=== PATIENT | male | born 1995 | race Asian ===

== ENCOUNTER 2018-08-04 09:45 | Inpatient (IN) | payer BC, OTHER ==
[2018-08-04] MEDS ORDERED: LACTATED RINGERS SOLUTION 1,000 ML IV STA (11:14)
[2018-08-04] MEDS ORDERED: METOCLOPRAMIDE HCL INJECTION 10 MG/2 ML VIAL IVPUSH ONE (11:14)
[2018-08-04] MEDS ORDERED: FAMOTIDINE 20 MG/50 ML IVPB 20 MG/50 ML MG IVPB ONE ×2 (11:14→12:01)
--- NOTE | 2018-08-04 11:55 | PDOC ---
History of Present Illness - General Chief Complaint: Back Pain Stated Complaint: LOWER BACK PAIN Time Seen by Provider: 08/04/18 11:03 History Source: Patient Exam Limitations: No Limitations - History of Present Illness Initial Comments: 08/04/18 11:52 HPI 23 YOM with no medical history presenting with epigastric AP and back pain x 2 weeks, worsening today with nausea and bloody, "black" emesis x 3 episodes mixed with food. Described AP and back pain as pressure like along the sides and under his rib cage. associated with "gas" discomfort and dry heaves initially. No alleviating or exacerbating factors. No food precipitants or suspicious food intake. No nsaid or otc supplement use. No binge drinking. Admits to occasional cannibis and smoking. No prior history of similar sx. +lightheadedness and dizziness, mild chest discomfort and palpitations with the abdominal sx. He does admit to heavy lifting with his occupation, carrying heavy boxes and loads, but denies trauma or falls. Denies fever, chills, chest pain, SOB, palpitation,, weakness,, D, abdominal pain, diarrhea or constipation, bloody stools, bladder and bowel problems, hematuria, rash, leg swelling, No sick contacts or travel. Allergies: NKA Past Medical History: none Social history: Lives with family. +smoking and cannibis use. No alcohol use. Surgical history: none ROS Constitutional: no fevers or chills. No weakness or anorexia, weight loss. + sweats and flushing. HEENT: +lightheadedness/dizziness. no headache. No congestion. No visual/ hearing disturbances. CVS: no cp or syncope. +palpitations. Resp: no sob. No cough. Gastrointestinal: +nausea, vomiting and abdominal pain. No bloody stools and no constipation/diarrhea. No flank pain. Genitourinary: no urinary sx, hematuria. No dysuria, urgency or frequency. MUSCULOSKELETAL: No joint pain and swelling. No neck pain. +back pain. SKIN: no redness or skin changes, no discharge, no rash. No wounds. Hematologic: no easy bruising/bleeding. NEUROLOGIC: No headache,LOC or altered mental status. No weakness, numbness or tingling. Allergic/Immunologic: no allergies All other systems reviewed and negative, or as documented in HPI. PE: General: Well appearing, awake and alert, NAD. HEENT: NCAT, PERRL, EOMI, clear conjunctiva, anicteric, moist mucus membranes, clear oropharynx, no oral lesions.. Neck: neck supple, FROM Resp: CTAB, normal and even respirations, no respiratory distress CVS: RRR, no murmurs, 2+ peripheral pulses throughout, no peripheral edema Abdomen: soft, +RUQ and epigastric abdominal tenderness, nondistended. No CVAT or flank tenderness. No rebound or guarding. Back: +paravertebral thoracic back TTP, normal inspection and ROM with extension /flexion of spine. MSK: no edema, HUGHES x4, ROM intact. No clubbing or cyanosis. normal bulk and tone. Extremities: no calf tenderness, no edema. Neuro: alert, Skin: warm and well perfused, cap refill <2 sec, normal color, moist to touch. 08/04/18 11:56 Past History - Past Medical History Allergies/Adverse Reactions: Allergies Allergy/AdvReac Type Severity Reaction Status Date / Time No Known Allergies Allergy Verified 08/04/18 09:53 COPD: No Other medical history: DENIES - Immunization History Immunization Up to Date: Yes - Suicide/Smoking/Psychosocial Hx Smoking History: Current every day smoker Have you smoked in the past 12 months: Yes Number of Cigarettes Smoked Daily: 10 Information on smoking cessation initiated: No Hx Alcohol Use: No Drug/Substance Use Hx: Yes (MARIJUANA) *Physical Exam - Vital Signs Last Vital Signs Temp Pulse Resp BP Pulse Ox 98.4 F 72 17 132/78 100 08/04/18 09:47 08/04/18 09:47 08/04/18 09:47 08/04/18 09:47 08/04/18 09:47 Moderate Sedation - Procedure Monitoring Vital Signs: Procedure Monitoring Vital Signs Temperature 98.4 F 08/04/18 09:47 Pulse Rate 72 08/04/18 09:47 Respiratory Rate 17 08/04/18 09:47 Blood Pressure 132/78 08/04/18 09:47 O2 Sat by Pulse Oximetry (%) 100 08/04/18 09:47 Procedures - Bedside Ultrasound Bedside Ultrasound: Gallbladder Remarks: 08/04/18 13:39 POCUS biliary exam: Indication: abdominal pain Views: gallbladder long and short axis, CBD Findings: large gallstone noted at the GB neck, GB wall thickening to 12mm, no pericholecystic fluid, normal CBD <3mm for age. +songuy wood Impression: cholelithiasis with acute cholecystitis. Heart Score/ECG Review #1 ECG reviewed & interpreted by me at: 11:40 General ECG Interpretation: Sinus Rhythm Compared to previous ECG there are: Previous ECG unavail 08/04/18 14:08 EKG normal sinus rhythm at 66 bpm, no interval abnormalities, narrow QRS, ST and T wave segments and morphology normal. ED Treatment Course - LABORATORY CBC & Chemistry Diagram: 08/04/18 12:25 08/04/18 12:25 - RADIOLOGY Radiology Studies Ordered: Category Date Time Status ABDOMEN US -LIMITED [US] Stat Ultrasound 08/04/18 11:15 Ordered Medical Decision Making - Medical Decision Making 08/04/18 11:53 See HPI for details DDx abdominal pain: Renal colic, biliary colic, metabolic/electrolyte derangements. GERD, PUD, esophageal spasm, gastritis, pancreatitis, hepatitis, colitis, gastroenteritis, cholecystitis, choledocholithiasis, UTI, pyelonephritis, hernia, muscle strain. Vital signs reviewed, wnl. no fever, normotensive. Prior notes reviewed, including admissions, discharges and consultations. laboratory results and imaging reviewed, basic labs and lytes notable for normal LFTs/lipase; +leukocytosis of 17K c/w infection/inflammation EKG normal sinus rhythm at 66 bpm, no interval abnormalities, narrow QRS, ST and T wave segments and morphology normal. ED course - IVF and pepcid/reglan. analgesia with tylenol/morphine. - bedside biliary pocus with cholelithiasis with acute cholecystitis (sono walter, GB wall thickening 12mm, large stone at the GB neck), normal CBD. - IV abx, ceftriaxone and flagyl for coverage, appropriate for acute alverto. - surg cs. - official RUQ sono pending - confirms findings. dispo: admit to med surg for acute cholecystitis, npo, bowel rest, pain control and abx. Surg cs with Dr Carrillo associate application developer. s/o to Dr Cross, admitting to hospitalist service at request of surgeon. 08/04/18 14:05 08/04/18 16:55 *DC/Admit/Observation/Transfer Diagnosis at time of Disposition: Acute cholecystitis - Discharge Dispostion Condition at time of disposition: Guarded Decision to Admit order: Yes Decision to Admit order Date/Time: 08/04/18 13:48 Decision to Admit Order Category Date Time Status Decision to Admit to Hospital Routine Admission 08/04/18 13:47 Ordered - Referrals - Patient Instructions - Post Discharge Activity
[2018-08-04] MEDS ORDERED: METOCLOPRAMIDE HCL INJECTION 10 MG/2 ML VIAL ONE (12:01)
[2018-08-04 12:39] LABS: BASO % 0.6 % (0-2.0); EOS % 0.6 % (0-4.5); HEMATOCRIT 47.3 % (35.4-49); HEMOGLOBIN 16.4 GM/dL (11.7-16.9); LYMPH % 13.2 % (8-40); MCH 29.4 pg (25.7-33.7); MCHC 34.7 g/dl (32.0-35.9); MEAN CELL VOLUME 84.8 fl (80-96); MEAN PLT VOLUME 11.2 fl (7.5-11.1); NEUT % 81.6 % (42.8-82.8); PLATELET COUNT 209 K/MM3 (134-434); RBC 5.58 M/mm3 (4.00-5.60); RDW 13.8 % (11.9-15.9)
[2018-08-04] MEDS ORDERED: ACETAMINOPHEN 1000 MG/100 ML VIAL (NON FORMULARY) IVPB ONE (12:45)
[2018-08-04] MEDS ORDERED: ACETAMINOPHEN INJECTION 100 ML IVPB ONE (13:05)
[2018-08-04 13:12] LABS: ALBUMIN 4.5 g/dl (3.4-5.0); ALK PHOS 74 U/L (45-117); ANION GAP 7 MMOL/L (8-16); BLOOD UREA NITROGEN 9 mg/dL (7-18); CALCIUM 9.9 mg/dL (8.5-10.1); CHLORIDE 108 mmol/L (98-107); CO2 24 mmol/L (21-32); CREATININE 0.9 mg/dL (0.55-1.3); GLUCOSE,RANDOM 104 mg/dL (74-106); LIPASE 90 U/L (73-393); POTASSIUM 3.8 mmol/L (3.5-5.1); SGOT/AST 25 U/L (15-37); SGPT/ALT 24 U/L (13-61); SODIUM 139 mmol/L (136-145); TOT PROT 7.9 g/dl (6.4-8.2)
[2018-08-04] MEDS ORDERED: morphine CARPU-JECT 4 MG/1 ML DISP.SYRIN IVPUSH ONE (13:26)
[2018-08-04] MEDS ORDERED: CEFTRIAXONE 1,000 MG in DEXTROSE 5%-WATER - 50 ML IVPB ONE (13:29)
[2018-08-04] MEDS ORDERED: morphine SULFATE 4 MG/ML VIAL ONE (13:48)
[2018-08-04] MEDS ORDERED: CEFTRIAXONE 1 GM/50 ML BAG ONE ×2 (13:48→14:52)
[2018-08-04] MEDS ORDERED: LACTATED RINGERS SOLUTION 1,000 ML/1,000 ML INFUS.BAG IV SCH (14:45)
--- NOTE | 2018-08-04 15:05 | HP ---
CHIEF COMPLAINT: abdominal pain, nausea PCP: HISTORY OF PRESENT ILLNESS: 23 y/o M with no significant PMH who presents to the ED c/o abdominal pain over the past day. As per pt, last night, he developed severe epigastric pain located below his rib cage. Pain started 30 min after dinner which consisted of rice and meat. Pain has been intermittent, "sharp and stabbing like a sword" with episodes lasting for a few minutes each before subsiding. During this time , pt endorses general nausea and induced vomiting to "get it out" three times. States it was dark in color, but is not sure whether it had any blood in it. Was a/w chills, sweating and SOB. Denies BOJORQUEZ, chest pain or pressure, or changes in urinary or bowel function. Of note, pt has had chronic back pain over the last few months in his paraspinal region. Attributes to heavy lifting for his job. ER course was notable for: (1) ofirmev (2) rocephin, flagyl x 1 (3) pepcid (4) metoclopramide (5) IV LR Recent Travel: denies PAST MEDICAL HISTORY: none PAST SURGICAL HISTORY: none Social History: works in construction, particularly on raquel and carpets Smoking: active smoker. 1/2 ppd since age 16. does not want to quit. counseled on importance Alcohol: socially Drugs: marijuana 1x /day Family History: mother - asthma, grandparents- gallstones Allergies No Known Allergies Allergy (Verified 08/04/18 09:53) HOME MEDICATIONS: NK confirmed with patient and mother REVIEW OF SYSTEMS CONSTITUTIONAL: Absent: fever, chills, diaphoresis, generalized weakness, malaise, loss of appetite, weight change HEENT: Absent: rhinorrhea, nasal congestion, throat pain, throat swelling, difficulty swallowing, mouth swelling, ear pain, eye pain, visual changes CARDIOVASCULAR: Absent: chest pain, syncope, palpitations, irregular heart rate, lightheadedness , peripheral edema RESPIRATORY: Absent: cough, shortness of breath, dyspnea with exertion, orthopnea, wheezing, stridor, hemoptysis GASTROINTESTINAL: +abdominal pain, nausea, vomiting Absent: abdominal distension, diarrhea, constipation, melena, hematochezia GENITOURINARY: Absent: dysuria, frequency, urgency, hesitancy, hematuria, flank pain, genital pain MUSCULOSKELETAL: Absent: myalgia, arthralgia, joint swelling, back pain, neck pain SKIN: Absent: rash, itching, pallor HEMATOLOGIC/IMMUNOLOGIC: Absent: easy bleeding, easy bruising, lymphadenopathy, frequent infections ENDOCRINE: Absent: unexplained weight gain, unexplained weight loss, heat intolerance, cold intolerance NEUROLOGIC: Absent: headache, focal weakness or paresthesias, dizziness, unsteady gait, seizure, mental status changes, bladder or bowel incontinence PSYCHIATRIC: Absent: anxiety, depression, suicidal or homicidal ideation, hallucinations. PHYSICAL EXAMINATION Vital Signs - 24 hr 08/04/18 09:47 Temperature 98.4 F Pulse Rate 72 Respiratory 17 Rate Blood Pressure 132/78 O2 Sat by Pulse 100 Oximetry (%) GENERAL: Pleasant. Awake, alert, and fully oriented, in no acute distress. HEAD: Normal with no signs of trauma. EYES: Pupils equal, round and reactive to light, extraocular movements intact, sclera anicteric, conjunctiva clear. No lid lag. EARS, NOSE, THROAT: Ears normal, nares patent, oropharynx clear without exudates. Moist mucous membranes. NECK: Normal range of motion, supple without lymphadenopathy LUNGS: Breath sounds equal, clear to auscultation bilaterally. No wheezes, and no crackles. No accessory muscle use. HEART: Regular rate and rhythm, normal S1 and S2 without murmur, rub or gallop. ABDOMEN: Soft, +mild epigastric, RUQ tenderness. not distended, normoactive bowel sounds, no guarding, no rebound LOWER EXTREMITIES: 2+ pt pulses, warm, well-perfused. No calf tenderness. No peripheral edema. NEUROLOGICAL: Cranial nerves II-XII intact. 5/5 motor strength UE, LE. sensation intact PSYCHIATRIC: Cooperative. SKIN: Warm, dry, normal turgor Laboratory Results - last 24 hr 08/04/18 08/04/18 12:25 12:25 WBC 17.0 H RBC 5.58 Hgb 16.4 Hct 47.3 MCV 84.8 MCH 29.4 MCHC 34.7 RDW 13.8 Plt Count 209 MPV 11.2 H Absolute Neuts (auto) 13.9 H Neutrophils % 81.6 Lymphocytes % 13.2 Monocytes % 4.0 Eosinophils % 0.6 Basophils % 0.6 Nucleated RBC % 0 Sodium 139 Potassium 3.8 Chloride 108 H Carbon Dioxide 24 Anion Gap 7 L BUN 9 Creatinine 0.9 Creat Clearance w eGFR > 60 Random Glucose 104 Calcium 9.9 Total Bilirubin 1.0 AST 25 ALT 24 Alkaline Phosphatase 74 Total Protein 7.9 Albumin 4.5 Lipase 90 POCUS biliary exam done by ED, as per ED attending: Indication: abdominal pain Views: gallbladder long and short axis, CBD Findings: large gallstone noted at the GB neck, GB wall thickening to 12mm, no pericholecystic fluid, normal CBD <3mm for age. +sono israel Impression: cholelithiasis with acute cholecystitis. Abd sono: acute calculous alverto. immobile calculi, 1.4cm diam, mild overdistended GB. without pericholecystic fluid. EKG: NSR, rate 60's, qtc 442ms. no acute st-t wave changes ASSESSMENT/PLAN: 23 y/o M with no significant PMH who presents to the ED c/o abdominal pain over the past day. #acute calculous cholecystitis -as per ED bedside sono, with gallstone at GB neck, wall thickening, no pericholecystic fluid, +sono walter's -official abd sono: as above -d/w sx, will take to OR tomorrow. NPO after MN, coags, T+S -will c/w IV abx: rocephin 1g IVPB qd, flagyl 500mg IVPB q8h -IV LR 100 cc/hr -pain control with morphine 2mg q6h -without nausea currently. however can give zofran if needed -surgery on board: Dr. Carrillo #F/E/N IV LR 100 cc/hr continue to follow lytes NPO after MN #PPX DVT: hep 5k TID. hold after MN #Dispo admit to med-surg Visit type - Emergency Visit Emergency Visit: Yes ED Registration Date: 08/04/18 Care time: The patient presented to the Emergency Department on the above date and was hospitalized for further evaluation of their emergent condition. - New Patient This patient is new to me today: Yes Date on this admission: 08/04/18 - Critical Care Critical Care patient: No
--- NOTE | 2018-08-04 15:34 | EKG ---
Test Reason : Blood Pressure : / mmHG Vent. Rate : 066 BPM Atrial Rate : 066 BPM P-R Int : 134 ms QRS Dur : 094 ms QT Int : 422 ms P-R-T Axes : 065 063 060 degrees QTc Int : 442 ms NORMAL SINUS RHYTHM NORMAL ECG NO PREVIOUS ECGS AVAILABLE Confirmed by DONNA OKEEFE, NATALY ([id number]) on 08/04/2018 3:34:36 PM Referred By: Confirmed By:NATALY THOMPSON MD
[2018-08-04] MEDS ORDERED: MORPHINE SULFATE 2 MG/ML VIAL IVPUSH PRN (16:00)
--- NOTE | 2018-08-04 16:23 | CONSULT ---
Consult Consult Specialty:: Surgery Reason for Consultation:: Abdominal pain , calculus of gallbladder with acute cholecystitis - History of Present Illness Chief Complaint: Abdominal pain in right upper quadrant abdomianl apin , radiating to the back. - History Source History Provided By: Patient Limitations to Obtaining History: No Limitations - Alcohol/Substance Use Hx Alcohol Use: No History of Substance Use: reports: Marijuana - Smoking History Smoking history: Current every day smoker Have you smoked in the past 12 months: Yes Aproximately how many cigarettes per day: 10 Home Medications - Allergies Allergies/Adverse Reactions: Allergies Allergy/AdvReac Type Severity Reaction Status Date / Time No Known Allergies Allergy Verified 08/04/18 09:53 Physical Exam Vital Signs: Vital Signs Temperature 98.4 F 08/04/18 09:47 Pulse Rate 72 08/04/18 09:47 Respiratory Rate 17 08/04/18 09:47 Blood Pressure 132/78 08/04/18 09:47 O2 Sat by Pulse Oximetry (%) 100 08/04/18 09:47 Gastrointestinal: Yes: WNL, Normal Bowel Sounds Labs: CBC, BMP 08/04/18 12:25 08/04/18 12:25 Imaging - Results Ultrasound: Report Reviewed (Claculus of gallbladder with acute cholecystitis.) , Image Reviewed Problem List - Problems (1) Calculus of gallbladder Code(s): K80.20 - CALCULUS OF GALLBLADDER W/O CHOLECYSTITIS W/O OBSTRUCTION Qualifiers: Cholecystitis presence: with cholecystitis (2) Acute cholecystitis Code(s): K81.0 - ACUTE CHOLECYSTITIS Assessment/Plan Acute calculus cholecystitis. Plan : Antibiotics. Laparoscopic cholecystectomy , delbert salas, Patient and his mother explained of the findings, the plan to do cholecystectomy , laparoscopic possible open. IV antibiotics. Risks, benefits and complications explained, including conversion to open, bleeding , infection , bile leak , bile duct injury etc. The adverse effects of smoking explained. All questions answered. He is scheduled for surgery tomorrow.
[2018-08-04 17:27] LABS: INR 1.1 (0.83-1.09)
[2018-08-04 17:29] LABS: ACTIVATED PTT 32.9 SECONDS (25.2-36.5)
[2018-08-04 17:43] VITALS: BMI 26.8
[2018-08-04] MEDS ORDERED: HEPARIN NA (PORCINE) 5,000 UNITS/ML 1ML VIAL SQ SCH ×2 (18:00→22:00)
--- NOTE | 2018-08-04 19:47 | PN ---
Teaching Attending Note Name of Resident: Kathrin Cross ATTENDING PHYSICIAN STATEMENT I saw and evaluated the patient. I reviewed the resident's note and discussed the case with the resident. I agree with the resident's findings and plan as documented. SUBJECTIVE: Complains of back pain and RUQ tenderness with dark vomitus with red clots. No chest pain/palps/SOB/diarhhea. No melena OBJECTIVE: Afebrile, Hemodynamically Stable Last Vital Signs Temp Pulse Resp BP Pulse Ox 98.1 F 67 18 156/76 100 08/04/18 17:35 08/04/18 17:35 08/04/18 17:35 08/04/18 17:35 08/04/18 18:11 HEENT- Atraumatic, Normocephalic Heart - S1, S2, RRR Lungs - clear to auscultation Abdomen- RUQ tenderness, soft, no guarding. Bowel Sounds normal. Extremities - no edema, no calf tenderness. Laboratory Results - last 24 hr 08/04/18 08/04/18 08/04/18 12:25 12:25 16:17 WBC 17.0 H RBC 5.58 Hgb 16.4 Hct 47.3 MCV 84.8 MCH 29.4 MCHC 34.7 RDW 13.8 Plt Count 209 MPV 11.2 H Absolute Neuts (auto) 13.9 H Neutrophils % 81.6 Lymphocytes % 13.2 Monocytes % 4.0 Eosinophils % 0.6 Basophils % 0.6 Nucleated RBC % 0 PT with INR 13.00 INR 1.10 H PTT (Actin FS) 32.9 Sodium 139 Potassium 3.8 Chloride 108 H Carbon Dioxide 24 Anion Gap 7 L BUN 9 Creatinine 0.9 Creat Clearance w eGFR > 60 Random Glucose 104 Calcium 9.9 Total Bilirubin 1.0 AST 25 ALT 24 Alkaline Phosphatase 74 Total Protein 7.9 Albumin 4.5 Lipase 90 Blood Type Antibody Screen 08/04/18 16:17 WBC RBC Hgb Hct MCV MCH MCHC RDW Plt Count MPV Absolute Neuts (auto) Neutrophils % Lymphocytes % Monocytes % Eosinophils % Basophils % Nucleated RBC % PT with INR INR PTT (Actin FS) Sodium Potassium Chloride Carbon Dioxide Anion Gap BUN Creatinine Creat Clearance w eGFR Random Glucose Calcium Total Bilirubin AST ALT Alkaline Phosphatase Total Protein Albumin Lipase Blood Type A POSITIVE Antibody Screen Negative Current Medications Generic Name Dose Route Start Last Admin Trade Name Freq PRN Reason Stop Dose Admin Ceftriaxone Sodium 1 gm/ 50 mls @ 100 mls/hr 08/05/18 13:00 Dextrose IVPB DAILY DEUCE Metronidazole 500 mg in 100 mls @ 100 mls/hr 08/04/18 21:30 Flagyl 500mg Premixed Ivpb - IVPB Q8H-IV DEUCE Lactated Ringer's 1,000 ml in 1,000 mls @ 100 mls/hr 08/04/18 14:45 08/04/18 14:45 Lactated Ringers Solution IV 100 mls/hr ASDIR DEUCE Administration Morphine Sulfate 2 mg 08/04/18 16:00 08/04/18 17:50 Morphine Sulfate IVPUSH 2 mg Q6H PRN Administration PAIN LEVEL 7 - 10 Pantoprazole Sodium 40 mg 08/04/18 22:00 Protonix Iv IVPUSH BID DEUCE ASSESSMENT AND PLAN: 23 year old malew ith no significant PMH presents with back pain and dark vomitus with "red clots", found to have RUQ tenderness and acute calculous cholecystitis on US imaging. US Abdomen - acute calculous cholecystitis, immobile calculi, 1.4cm diam, mild overdistended GB. without pericholecystic fluid. 1. Acute Calculous Cholecystitis Continue Ceftriaxone/Flagyl Evaluated by Surgery - for OR tomorrow. Leukocytosis Afebrile, Hemodynamically Stable. IV Morphine Sulfate prn GI Px - Protonix
[2018-08-04] MEDS: PANTOPRAZOLE SODIUM 40 MG VIAL IVPUSH SCH (21:06)
[2018-08-04 23:31] LABS: URINE APPEARANCE CLEAR; URINE BILIRUBIN NEGATIVE (<2.0 mg/dL); URINE COLOR LTYELLOW; URINE GLUCOSE (UA) NEGATIVE (NEGATIVE); URINE KETONE 1+ (NEGATIVE); URINE LEUK ESTERASE NEGATIVE (NEGATIVE); URINE NITRITE NEGATIVE (NEGATIVE); URINE PROTEIN NEGATIVE (NEGATIVE); URINE UROBILINOGEN NEGATIVE mg/dL (0.2-1.0)
[2018-08-05 07:44] LABS: BASO % 0.3 % (0-2.0); EOS % 1.2 % (0-4.5); HEMATOCRIT 42.5 % (35.4-49); HEMOGLOBIN 14.7 GM/dL (11.7-16.9); LYMPH % 22.6 % (8-40); MCH 29.2 pg (25.7-33.7); MCHC 34.5 g/dl (32.0-35.9); MEAN CELL VOLUME 84.5 fl (80-96); MEAN PLT VOLUME 11.4 fl (7.5-11.1); MONO % 6.5 % (3.8-10.2); NEUT % 69.4 % (42.8-82.8); PLATELET COUNT 209 K/MM3 (134-434); RBC 5.03 M/mm3 (4.00-5.60); RDW 13.7 % (11.9-15.9); WHITE BLOOD COUNT 15.4 K/mm3 (4.0-10.0)
[2018-08-05 08:02] LABS: ANION GAP 9 MMOL/L (8-16); BLOOD UREA NITROGEN 5 mg/dL (7-18); CALCIUM 9.3 mg/dL (8.5-10.1); CHLORIDE 105 mmol/L (98-107); CO2 24 mmol/L (21-32); CREATININE 0.8 mg/dL (0.55-1.3); GLUCOSE,RANDOM 95 mg/dL (74-106); PHOSPHOROUS 3.8 mg/dL (2.5-4.9); POTASSIUM 3.4 mmol/L (3.5-5.1); SODIUM 137 mmol/L (136-145)
[2018-08-05] MEDS ORDERED: POTASSIUM CHLORIDE 20 MEQ PREMIX IVPB 100 ML IVPB ONE ×2 (08:37→14:37)
[2018-08-05] MEDS: KCL 10 MEQ IVPB 10 MEQ/100 ML INFUS.BAG IVPB SCH ×4 (08:55→17:17)
[2018-08-05] MEDS: PANTOPRAZOLE SODIUM 40 MG VIAL IVPUSH SCH (10:27)
--- NOTE | 2018-08-05 10:55 | CON.GI ---
Consult Consult Specialty:: GI Referred by:: Hospitalist Service Reason for Consultation:: upper abdominal pain, vomiting and vomiting blood - History of Present Illness Chief Complaint: As above History of Present Illness: 23M adnmitted through [facility] yesterday afternoon for evaluation of upper abdominal pain. He also states that he vomited rice along with blood clots. H/ H has been stable as had BUN. The night before he had eaten french food. In the ER vitals were stable. He was noted to have an elevated WBC and + RUQ and epigastric tenderness was elicited by the ER attending's exam. US revealed a large gallstone at the neck of the gallbladder and thickened gallbladder wall. H/H has remained stable. There has been no further vomiting of blood or melena noted. He states that the pain has become more localized now to the RUQ. - History Source History Provided By: Patient, Family Member (father and mother present at bedside) - Past Medical History Additional Medical History: Denies - Past Surgical History Additional Surgical History: Denies - Alcohol/Substance Use Hx Alcohol Use: Yes (occasional) History of Substance Use: reports: Marijuana - Smoking History Smoking history: Current every day smoker Have you smoked in the past 12 months: Yes Aproximately how many cigarettes per day: 10 - Social History Usual Living Arrangement: With Parent ADL: Independent Place of : [facility] History of Recent Travel: No Home Medications - Allergies Allergies/Adverse Reactions: Allergies Allergy/AdvReac Type Severity Reaction Status Date / Time No Known Allergies Allergy Verified 08/04/18 09:53 - Home Medications Home Medications: Ambulatory Orders NK [No Known Home Medication] 08/04/18 Family Disease History - Family Disease History Family Disease History: Other: Father (Healthy), Mother (Healthy), Brother ( healthy) Other Family History: No family history of colorectal cancer or other GI malignancy Review of Systems - Review of Systems Constitutional: denies: Chills Cardiovascular: denies: Chest Pain Respiratory: denies: Cough Gastrointestinal: reports: Abdominal Pain, Nausea, Vomiting, Vomiting Blood. denies: Diarrhea, Melena, Rectal Bleeding Physical Exam-GI Vital Signs: Vital Signs Temperature 98.2 F 08/05/18 06:00 Pulse Rate 72 08/05/18 06:00 Respiratory Rate 18 08/05/18 06:00 Blood Pressure 136/77 08/05/18 06:00 O2 Sat by Pulse Oximetry (%) 100 08/04/18 21:00 Constitutional: Yes: Calm Eyes: No: Sclera Icterus Cardiovascular: Yes: Regular Rate and Rhythm Respiratory: Yes: CTA Bilaterally Gastrointestinal Inspection: No: Distention, Scars ...Auscultate: Yes: Normoactive Bowel Sounds ...Palpate: Yes: Soft, Tenderness (TTP RUQ) ...Percussion: No: Tympanitic Edema: No (No LE edema) Neurological: Yes: Alert Labs: CBC, BMP 08/05/18 07:00 08/05/18 06:00 INR, PTT INR 1.10 (0.83-1.09) H 08/04/18 16:17 Hepatic Panel Total Bilirubin 1.0 mg/dL (0.2-1) 08/04/18 12:25 AST 25 U/L (15-37) 08/04/18 12:25 ALT 24 U/L (13-61) 08/04/18 12:25 Alkaline Phosphatase 74 U/L (45-117) 08/04/18 12:25 Albumin 4.5 g/dl (3.4-5.0) 08/04/18 12:25 Imaging - Results Ultrasound: Report Reviewed (Thickened GB wall, multiple stones at neck of GB largest 1.4cm, normal caliber CBD) Problem List - Problems (1) Acute cholecystitis Assessment/Plan: Suspect the vomiting of blood was from the force of the retching. Do not think current clinical picture is secondary to a primary GI bleed event. Don has been evaluated by Dr. Carrillo from surgery and is scheduled for Lap Nora today. Advise: IV Abx Dont think there is a need for BID PPI Post op care per surgery and primary team Recall as needed Code(s): K81.0 - ACUTE CHOLECYSTITIS
[2018-08-05] MEDS ORDERED: BUPIVACAINE HCL/PF 0.5% (5MG/ML) 10 ML VIAL ONE (11:27)
[2018-08-05] MEDS ORDERED: ONDANSETRON 4 MG/2 ML VIAL IVPUSH PRN ×2 (11:55→14:37)
[2018-08-05] MEDS ORDERED: MIDAZOLAM HCL 2 MG/2 ML SINGLE DOSE VIAL ONE ×2 (11:58)
[2018-08-05] MEDS ORDERED: fentaNYL CITRATE 250 MCG/5 ML VIAL ONE (11:58)
[2018-08-05] MEDS ORDERED: LACTATED RINGERS SOLUTION 1,000 ML IV SCH ×2 (12:00→14:37)
--- NOTE | 2018-08-05 12:07 | PN ---
Physical Exam: SUBJECTIVE: Patient seen and examined at bedside. NPO for surgery, no acute events. pt still w/ mild pain but improved. denies fever, chills, cp, sob, n/v/d , urinary sxs. no more epsiodes of dark vomitus with red clots OBJECTIVE: Vital Signs Period Temp Pulse Resp BP Sys/Arguello Pulse Ox Last 24 Hr 98 F-98.2 F 67-76 16-20 135-156/70-91 100-100 GENERAL: Pleasant. Awake, alert, and fully oriented, in no acute distress. HEAD: Normal with no signs of trauma. EYES: Pupils equal, round and reactive to light, extraocular movements intact, sclera anicteric, conjunctiva clear. No lid lag. EARS, NOSE, THROAT: Ears normal, nares patent, oropharynx clear without exudates. Moist mucous membranes. NECK: Normal range of motion, supple without lymphadenopathy LUNGS: Breath sounds equal, clear to auscultation bilaterally. No wheezes, and no crackles. No accessory muscle use. HEART: Regular rate and rhythm, normal S1 and S2 without murmur, rub or gallop. ABDOMEN: Soft, +mild epigastric, RUQ tenderness. not distended, normoactive bowel sounds, no guarding, no rebound LOWER EXTREMITIES: 2+ pt pulses, warm, well-perfused. No calf tenderness. No peripheral edema. NEUROLOGICAL: Cranial nerves II-XII intact. 5/5 motor strength UE, LE. sensation intact PSYCHIATRIC: Cooperative. SKIN: Warm, dry, normal turgor Laboratory Results - last 24 hr 08/04/18 08/04/18 08/04/18 12:25 12:25 16:17 WBC 17.0 H RBC 5.58 Hgb 16.4 Hct 47.3 MCV 84.8 MCH 29.4 MCHC 34.7 RDW 13.8 Plt Count 209 MPV 11.2 H Absolute Neuts (auto) 13.9 H Neutrophils % 81.6 Lymphocytes % 13.2 Monocytes % 4.0 Eosinophils % 0.6 Basophils % 0.6 Nucleated RBC % 0 PT with INR 13.00 INR 1.10 H PTT (Actin FS) 32.9 Sodium 139 Potassium 3.8 Chloride 108 H Carbon Dioxide 24 Anion Gap 7 L BUN 9 Creatinine 0.9 Creat Clearance w eGFR > 60 Random Glucose 104 Calcium 9.9 Phosphorus Magnesium Total Bilirubin 1.0 AST 25 ALT 24 Alkaline Phosphatase 74 Total Protein 7.9 Albumin 4.5 Lipase 90 Urine Color Urine Appearance Urine pH Ur Specific [place] Urine Protein Urine Glucose (UA) Urine Ketones Urine Blood Urine Nitrite Urine Bilirubin Urine Urobilinogen Ur Leukocyte Esterase Blood Type Antibody Screen 08/04/18 08/04/18 08/04/18 16:17 20:30 22:00 WBC RBC Hgb Hct MCV MCH MCHC RDW Plt Count MPV Absolute Neuts (auto) Neutrophils % Lymphocytes % Monocytes % Eosinophils % Basophils % Nucleated RBC % PT with INR INR PTT (Actin FS) Sodium Potassium Chloride Carbon Dioxide Anion Gap BUN Creatinine Creat Clearance w eGFR Random Glucose Calcium Phosphorus Magnesium Total Bilirubin AST ALT Alkaline Phosphatase Total Protein Albumin Lipase Urine Color Ltyellow Urine Appearance Clear Urine pH 8.0 Ur Specific [place] 1.016 Urine Protein Negative Urine Glucose (UA) Negative Urine Ketones 1+ H Urine Blood Negative Urine Nitrite Negative Urine Bilirubin Negative Urine Urobilinogen Negative Ur Leukocyte Esterase Negative Blood Type A POSITIVE A POSITIVE Antibody Screen Negative 08/05/18 08/05/18 06:00 07:00 WBC 15.4 H RBC 5.03 Hgb 14.7 Hct 42.5 MCV 84.5 MCH 29.2 MCHC 34.5 RDW 13.7 Plt Count 209 MPV 11.4 H Absolute Neuts (auto) 10.7 H Neutrophils % 69.4 Lymphocytes % 22.6 D Monocytes % 6.5 Eosinophils % 1.2 D Basophils % 0.3 Nucleated RBC % 0 PT with INR INR PTT (Actin FS) Sodium 137 Potassium 3.4 L Chloride 105 Carbon Dioxide 24 Anion Gap 9 BUN 5 L Creatinine 0.8 Creat Clearance w eGFR 119.80 Random Glucose 95 Calcium 9.3 Phosphorus 3.8 Magnesium 2.0 Total Bilirubin AST ALT Alkaline Phosphatase Total Protein Albumin Lipase Urine Color Urine Appearance Urine pH Ur Specific [place] Urine Protein Urine Glucose (UA) Urine Ketones Urine Blood Urine Nitrite Urine Bilirubin Urine Urobilinogen Ur Leukocyte Esterase Blood Type Antibody Screen Active Medications Generic Name Dose Route Start Last Admin Trade Name Freq PRN Reason Stop Dose Admin Fentanyl 50 mcg 08/05/18 11:55 Sublimaze Injection - IVPUSH [id number] PRN PAIN-PACU ORDER X 4 DOSES ONLY Ceftriaxone Sodium 1 gm/ 50 mls @ 100 mls/hr 08/05/18 13:00 Dextrose IVPB DAILY DEUCE Metronidazole 500 mg in 100 mls @ 100 mls/hr 08/04/18 21:30 08/05/18 01:13 Flagyl 500mg Premixed Ivpb - IVPB 100 mls/hr Q8H-IV DEUCE Administration Lactated Ringer's 1,000 ml in 1,000 mls @ 100 mls/hr 08/04/18 14:45 08/04/18 14:45 Lactated Ringers Solution IV 100 mls/hr ASDIR DEUCE Administration Lactated Ringer's 1,000 mls @ 125 mls/hr 08/05/18 12:00 Lactated Ringers Solution IV ASDIR DEUCE Morphine Sulfate 2 mg 08/04/18 16:00 08/04/18 17:50 Morphine Sulfate IVPUSH 2 mg Q6H PRN Administration PAIN LEVEL 7 - 10 Ondansetron HCl 4 mg 08/05/18 11:55 Zofran Injection IVPUSH Q6H PRN NAUSEA AND/OR VOMITING POCUS biliary exam done by ED, as per ED attending: Indication: abdominal pain Views: gallbladder long and short axis, CBD Findings: large gallstone noted at the GB neck, GB wall thickening to 12mm, no pericholecystic fluid, normal CBD <3mm for age. +sono murphydesiree Impression: cholelithiasis with acute cholecystitis. Abd sono: acute calculous alverto. immobile calculi, 1.4cm diam, mild overdistended GB. without pericholecystic fluid. EKG: NSR, rate 60's, qtc 442ms. no acute st-t wave changes CXR nl ASSESSMENT/PLAN: 23 y/o M with no significant PMH who presents to the ED c/o abdominal pain over the past day. #acute calculous cholecystitis -as per ED bedside sono, with gallstone at GB neck, wall thickening, no pericholecystic fluid, +sono walter's -official abd sono: as above -NPO for surgery today -will c/w IV abx: rocephin 1g IVPB qd, flagyl 500mg IVPB q8h -IV LR 100 cc/hr -pain control with morphine 2mg q6h -without nausea currently. however can give zofran if needed -surgery on board: Dr. Carrillo #dark vomitus with red clots - no more episodes GI consult protonix IV qd NPO Per GI, Suspect the vomiting of blood was from the force of the retching. Do not think current clinical picture is 2/2 a primary GI bleed event. Dont think there is a need for BID PPI #F/E/N IV LR 100 cc/hr continue to follow lytes NPO for surgery today #PPX DVT: hold hep 5k TID for surgery. SCDs #Dispo med-surg OR today Visit type - Emergency Visit Emergency Visit: Yes ED Registration Date: 08/04/18 Care time: The patient presented to the Emergency Department on the above date and was hospitalized for further evaluation of their emergent condition. - New Patient This patient is new to me today: Yes Date on this admission: 08/05/18 - Critical Care Critical Care patient: No
[2018-08-05] MEDS ORDERED: ROCURONIUM BROMIDE 50 MG/5 ML VIAL ONE (12:16)
[2018-08-05] MEDS ORDERED: PROPOFOL 20 ML ONE ×2 (12:16)
[2018-08-05] MEDS ORDERED: CEFTRIAXONE 1 GM in DEXTROSE 5%-WATER - 50 ML IVPB SCH (13:00)
[2018-08-05] MEDS ORDERED: BUPIVACAINE HCL/PF (5 MG/ML) 30 ML VIAL IJ ONE ×2 (13:45)
[2018-08-05] MEDS ORDERED: NEOSTIGMINE METHYLSULFATE 0.5 MG/ML - 10 ML MDV ONE ×2 (13:56)
--- NOTE | 2018-08-05 14:06 | OP ---
Operative Note - Note: Operative Date: 08/05/18 Pre-Operative Diagnosis: Calculus of gallbladder with acute cholecystitis with obstruction. Operation: Laparoscopic cholecystectomy , extensive lysis of omental adhesions. Findings: Hydrops of gallbladder ; distended , obstructed gallbladder with stone impacted at the cystic duct. Dense adhesions of omentum around the gallbladder,all the way to the fundus, suggestive of chronic inflammation. Post-Operative Diagnosis: Other (Calculus of gallbladder with acute cholecystitis with obstruction , and extensive omental adhesions) Surgeon: Jorge Carrillo Promotional Marketing Agent: Gary Fonseca Anesthesia: General Specimens Removed: 1) Gallbladder with calculus,. 2) Bile for culture. Estimated Blood Loss (mls): 10 Operative Report Dictated: Yes
[2018-08-05] MEDS ORDERED: oxyCODONE HCL 5 MG TABLET PO PRN (14:29)
[2018-08-05] MEDS ORDERED: ACETAMINOPHEN 325 MG TABLET (FP) PO PRN (14:29)
[2018-08-05] MEDS ORDERED: LACTATED RINGERS SOLUTION 1,000 ML/1,000 ML INFUS.BAG IV SCH (14:37)
[2018-08-05] MEDS ORDERED: ACETAMINOPHEN 500 MG TABLET (FP) PO PRN (14:37)
[2018-08-05] MEDS ORDERED: MORPHINE SULFATE 2 MG/ML VIAL IVPUSH PRN (14:37)
--- NOTE | 2018-08-05 15:51 | OP ---
DATE OF OPERATION: 08/05/2018 PREOPERATIVE DIAGNOSES: Acute cholecystitis with leukocytosis, febrile, and sepsis. POSTOPERATIVE DIAGNOSES: Calculus of the gallbladder with severe acute cholecystitis, hydrops of the gallbladder, extensive omental adhesions all along the gallbladder. OPERATIVE PROCEDURE: Laparoscopic cholecystectomy with extensive lysis of omental adhesions. SURGEON: Apoorva Carrillo MD MOBILE GAME ENGINEER: Gary Fonseca MD ANESTHESIA: General anesthesia. OPERATIVE DESCRIPTION: This 23-year-old man was admitted through the emergency room with fever, abdominal pain for 1 day in the right upper quadrant radiating to the back. Patient did not complain of any pain prior to this. He was found to have calculus of the gallbladder with obstruction with a stone in the gallbladder neck with cholecystitis. He was afebrile and had leukocytosis. He was diagnosed with acute cholecystitis with obstruction and brought to the operating room. Consent was obtained, and risks, benefits, and complications have been discussed with the patient and the family. Patient had been on antibiotics. Patient was brought to the operating room. General anesthesia was administered. The abdomen painted and draped. Timeout was called. Incision was made in the infraumbilical portion of the umbilicus which was deepened through the skin, subcutaneous tissue, and the linea alba. The peritoneum was incised, and a 10-12 mm laparoscopic trocar of the Hasan type was introduced into the abdominal cavity. The abdomen was inflated with carbon dioxide at 6 L per minute at maximum intraabdominal pressure at 15 mmHg. A 5-mm camera was introduced into the abdominal cavity. This was switched to a 10-mm as needed during the procedure. Two 5-mm trocars were inserted in the right upper quadrant of the abdomen, one along midclavicular line and another along the anterior axillary line, a few fingerbreadths below the costal margin. These were noted entering the abdominal cavity under direct vision with the camera. A third trocar 5-mm was inserted in the midline in the subxiphoid area after making a small skin incision. This entered the abdominal cavity to the right of the falciform ligament. The gallbladder was then noted to be covered with omentum all around. With sharp and blunt dissection as well as using electrocautery, the fundus of the gallbladder was from the omental adhesions. These were quite dense. Once the fundus of the gallbladder was visualized, this was grasped with a grasper through the lateral port site and retracted cephalad and laterally. With sharp and blunt dissection using electrocautery as well as Endoshears, the omental adhesions around the gallbladder was carefully lysed all the way down towards the infundibulum. The gallbladder was very distended and large requiring emptying of the gallbladder by inserting a needle through the subxiphoid port into the gallbladder and emptying the gallbladder. The gallbladder was found to have thick, clear fluid suggesting hydrops of the gallbladder and obstruction of the cystic duct. A specimen of gallbladder fluid was sent for culture and antibiotic sensitivity examination. There was a thick peel around the infundibulum. This was carefully to visualize the infundibulum of the gallbladder. This was grasped. Then with the grasper, the infundibulum was retracted inferiorly and laterally. With perseverance and blunt dissection, the cystic duct was identified, and after further dissection, the cystic duct and the gallbladder junction was identified. Carefully with blunt dissection, the cystic artery was also visualized then this was divided between clips. The cystic duct was also divided between clips. The gallbladder was then and carefully retracted. The peritoneal reflection on either side of the cystic duct was then incised. The gallbladder dissected out of the gallbladder bed with sharp and blunt dissection as well as using electrocautery, and this was carried all the way to the fundus of the gallbladder. There were extensive adhesions and dense adhesions of the gallbladder to the gallbladder bed making a difficult dissection all the way to the fundus of the gallbladder. The cholecystectomy was thus accomplished. The EndoCatch was then introduced through the umbilical port. The camera was then switched to the subxiphoid port. The gallbladder was placed into the EndoCatch and retrieved out of the abdominal cavity. The specimen was sent to Pathology. The gallbladder was quite long, distended, and thick suggesting chronic inflammation. The gallbladder fossa was then thoroughly irrigated with normal saline. All fluid return was clear. Hemostasis was satisfactory at the completion of the procedure. The linea alba in the midline at the umbilicus was then approximated with interrupted and [id number] 2-0 Vicryl sutures. The skin was approximated with buried, interrupted 4-0 Biosyn sutures. Marcaine 0.5% was injected into the wound. Estimated blood loss was between 10 to 20 mL. Patient tolerated the procedure well, was extubated, and returned to the recovery room in satisfactory and stable condition. Ankit ROBBINS/[id number] cc: Gary Fonseca MD
--- NOTE | 2018-08-05 16:42 | PN ---
Teaching Attending Note Name of Resident: Orlando Betancur ATTENDING PHYSICIAN STATEMENT I saw and evaluated the patient. I reviewed the resident's note and discussed the case with the resident. I agree with the resident's findings and plan as documented. SUBJECTIVE: No further vomiting. No fever/chills. No chest pain/palps/SOB/ diarrhea. No melena/hematochezia. OBJECTIVE: Afebrile, Hemodynamically Stable Last Vital Signs Temp Pulse Resp BP Pulse Ox 97.8 F 86 14 128/74 100 08/05/18 16:10 08/05/18 16:10 08/05/18 16:10 08/05/18 16:10 08/05/18 15:55 HEENT- Atraumatic, Normocephalic Heart - S1, S2, RRR Lungs - clear to auscultation Abdomen- RUQ tenderness, soft, no guarding. Bowel Sounds normal. Extremities - no edema, no calf tenderness. Laboratory Results - last 24 hr 08/04/18 08/04/18 08/04/18 16:17 16:17 20:30 WBC RBC Hgb Hct MCV MCH MCHC RDW Plt Count MPV Absolute Neuts (auto) Neutrophils % Lymphocytes % Monocytes % Eosinophils % Basophils % Nucleated RBC % PT with INR 13.00 INR 1.10 H PTT (Actin FS) 32.9 Sodium Potassium Chloride Carbon Dioxide Anion Gap BUN Creatinine Creat Clearance w eGFR Random Glucose Calcium Phosphorus Magnesium Urine Color Urine Appearance Urine pH Ur Specific [place] Urine Protein Urine Glucose (UA) Urine Ketones Urine Blood Urine Nitrite Urine Bilirubin Urine Urobilinogen Ur Leukocyte Esterase Blood Type A POSITIVE A POSITIVE Antibody Screen Negative 08/04/18 08/05/18 08/05/18 22:00 06:00 07:00 WBC 15.4 H RBC 5.03 Hgb 14.7 Hct 42.5 MCV 84.5 MCH 29.2 MCHC 34.5 RDW 13.7 Plt Count 209 MPV 11.4 H Absolute Neuts (auto) 10.7 H Neutrophils % 69.4 Lymphocytes % 22.6 D Monocytes % 6.5 Eosinophils % 1.2 D Basophils % 0.3 Nucleated RBC % 0 PT with INR INR PTT (Actin FS) Sodium 137 Potassium 3.4 L Chloride 105 Carbon Dioxide 24 Anion Gap 9 BUN 5 L Creatinine 0.8 Creat Clearance w eGFR 119.80 Random Glucose 95 Calcium 9.3 Phosphorus 3.8 Magnesium 2.0 Urine Color Ltyellow Urine Appearance Clear Urine pH 8.0 Ur Specific [place] 1.016 Urine Protein Negative Urine Glucose (UA) Negative Urine Ketones 1+ H Urine Blood Negative Urine Nitrite Negative Urine Bilirubin Negative Urine Urobilinogen Negative Ur Leukocyte Esterase Negative Blood Type Antibody Screen ASSESSMENT AND PLAN: 23 year old male with no significant PMH presents with back pain and dark vomitus with "red clots", found to have RUQ tenderness and acute calculous cholecystitis on US imaging. US Abdomen - acute calculous cholecystitis, immobile calculi, 1.4cm diam, mild overdistended GB. without pericholecystic fluid. 1. Acute Calculous Cholecystitis Continue Ceftriaxone/Flagyl Evaluated by Surgery - for OR today Leukocytosis improving. Afebrile, Hemodynamically Stable. IV Morphine Sulfate prn 2. Possible GI bleed - Hematemesius reported by patient. No epigastric pain/melena/hematochezia. No further vomiting Monitor H/H and GI consulted. 3. Hypokalemia - repleted. GI Px - Protonix DVT Px - SCDs. Heparin held due to reported bloody vomitus prior to admission.
[2018-08-06 08:00] LABS: BASO % 0.2 % (0-2.0); EOS % 0.5 % (0-4.5); HEMATOCRIT 40.7 % (35.4-49); HEMOGLOBIN 14.2 GM/dL (11.7-16.9); LYMPH % 19.6 % (8-40); MCH 29.7 pg (25.7-33.7); MCHC 34.9 g/dl (32.0-35.9); MEAN CELL VOLUME 85.2 fl (80-96); MEAN PLT VOLUME 11.5 fl (7.5-11.1); MONO % 6.6 % (3.8-10.2); NEUT % 73.1 % (42.8-82.8); PLATELET COUNT 194 K/MM3 (134-434); RBC 4.78 M/mm3 (4.00-5.60); RDW 13.6 % (11.9-15.9); WHITE BLOOD COUNT 13.8 K/mm3 (4.0-10.0)
[2018-08-06 08:14] LABS: ALBUMIN 3.8 g/dl (3.4-5.0); ALK PHOS 67 U/L (45-117); ANION GAP 8 MMOL/L (8-16); BILIRUBIN,TOTAL 1.5 mg/dL (0.2-1); BLOOD UREA NITROGEN 7 mg/dL (7-18); CALCIUM 9.1 mg/dL (8.5-10.1); CHLORIDE 104 mmol/L (98-107); CO2 25 mmol/L (21-32); CREATININE 0.8 mg/dL (0.55-1.3); GLUCOSE,RANDOM 108 mg/dL (74-106); MAGNESIUM 1.9 mg/dL (1.8-2.4); PHOSPHOROUS 3.2 mg/dL (2.5-4.9); POTASSIUM 3.5 mmol/L (3.5-5.1); SGOT/AST 27 U/L (15-37); SGPT/ALT 32 U/L (13-61); SODIUM 137 mmol/L (136-145); TOT PROT 7.2 g/dl (6.4-8.2)
--- NOTE | 2018-08-06 08:52 | PN ---
Physical Exam: SUBJECTIVE: Patient seen and examined. Resting in solarium. C/o continued abdominal pain today. Has passed flatus, but without BM. Ambulating freely. Tolerating diet. No further complaint. OBJECTIVE: Vital Signs Period Temp Pulse Resp BP Sys/Arguello Pulse Ox Last 24 Hr 97.8 F-99.4 F 73-103 14-22 112-152/48-94 97-100 GENERAL: The patient is awake, alert, and fully oriented, in no acute distress. HEAD: Normal with no signs of trauma. EYES: PERRL, extraocular movements intact, sclera anicteric, conjunctiva clear. No ptosis. ENT: Ears normal, nares patent, oropharynx clear without exudates, moist mucous membranes. NECK: Trachea midline, supple. LUNGS: Breath sounds equal, clear to auscultation bilaterally, no wheezes, no crackles, no accessory muscle use. HEART: Regular rate and rhythm, S1, S2 without murmur, rub or gallop. ABDOMEN: Soft, +diffusely TTP - RUQ, epigastrium. surgical incision sites healing well, without drainage. nondistended abdomen, hypoactive bowel sounds. EXTREMITIES: 2+ pt pulses, warm, well-perfused, no edema. NEUROLOGICAL: Cranial nerves II through XII grossly intact. 5/5 motor strength UE, LE. PSYCH: Normal mood, normal affect. SKIN: Warm, dry, normal turgor Laboratory Results 08/06/18 08/06/18 06:00 06:00 WBC 13.8 H RBC 4.78 Hgb 14.2 Hct 40.7 MCV 85.2 MCH 29.7 MCHC 34.9 RDW 13.6 Plt Count 194 MPV 11.5 H Absolute Neuts (auto) 10.1 H Neutrophils % 73.1 Lymphocytes % 19.6 Monocytes % 6.6 Eosinophils % 0.5 Basophils % 0.2 Nucleated RBC % 0 Sodium 137 Potassium 3.5 Chloride 104 Carbon Dioxide 25 Anion Gap 8 BUN 7 Creatinine 0.8 Creat Clearance w eGFR 119.80 Random Glucose 108 H Calcium 9.1 Phosphorus 3.2 Magnesium 1.9 Total Bilirubin 1.5 H AST 27 ALT 32 Alkaline Phosphatase 67 Total Protein 7.2 Albumin 3.8 Active Medications Generic Name Dose Route Start Last Admin Trade Name Freq PRN Reason Stop Dose Admin Acetaminophen 325 mg 08/05/18 14:29 Tylenol - PO Q6H PRN PAIN LEVEL 1-5 Acetaminophen 500 mg 08/05/18 14:37 Tylenol - PO Q6H PRN PAIN LEVEL 1-5 Fentanyl 50 mcg 08/05/18 14:37 08/05/18 15:50 Sublimaze Injection - IVPUSH 50 mcg [id number] PRN Administration PAIN-PACU ORDER X 4 DOSES ONLY Ceftriaxone Sodium 1 gm/ 50 mls @ 100 mls/hr 08/06/18 10:00 Dextrose IVPB DAILY DEUCE Metronidazole 500 mg in 100 mls @ 100 mls/hr 08/05/18 18:00 08/06/18 01:55 Flagyl 500mg Premixed Ivpb - IVPB 100 mls/hr Q8H-IV DEUCE Administration Lactated Ringer's 1,000 ml in 1,000 mls @ 100 mls/hr 08/05/18 14:37 08/05/18 15:47 Lactated Ringers Solution IV 100 mls/hr ASDIR DEUCE Administration Morphine Sulfate 2 mg 08/05/18 14:37 Morphine Sulfate IVPUSH Q6H PRN PAIN LEVEL 7 - 10 Ondansetron HCl 4 mg 08/05/18 14:37 Zofran Injection IVPUSH Q6H PRN NAUSEA AND/OR VOMITING Oxycodone HCl 5 mg 08/05/18 14:29 Roxicodone - PO Q6H PRN PAIN LEVEL 1-5 Intra-op bile cx: anaerobic - pending ASSESSMENT/PLAN: 23 y/o M with no significant PMH who presented to the ED c/o abdominal pain x1 day. Pt was found to have acute calculous cholecystitis and is s/p lap alverto. #s/p lap alverto - PO Day1 -also w/ extensive lysis of omental adhesions. -will c/w IV abx: rocephin 1g IVPB qd, flagyl 500mg IVPB q8h -f/u bile anaerobic cx -d/w sx: for possible d/c tomorrow if white count continues to improve. for now keep on IV abx given extent of GB damage -IVF d/c. tolerating PO -pain control : morphine 2mg q6h, alexis 5mg PO q6h PRN -surgery on board: Dr. Carrillo #dark vomitus with red clots -resolved -likely 2/2 retching, likely not primary GIB. no need for PPI BID at this time -GI: Dr. Castle #F/E/N IVF have been d/c since tolerating PO continue to follow lytes soft diet, advance as tolerated #PPX DVT: early ambulation #Dispo continued monitoring on med-surg for likely d/c tomorrow as per surgery, if WBC count continues to improve will need to discuss PO agent and course of tx Visit type - Emergency Visit Emergency Visit: No - New Patient This patient is new to me today: Yes Date on this admission: 08/06/18 - Critical Care Critical Care patient: No
--- NOTE | 2018-08-06 09:29 | PN ---
Progress Note (short form) - Note Progress Note: POD1 s/p lap alverto under GA. Pt is ambulating, doing well, minimal pain. No anesthetic issues/complications noted
[2018-08-06] MEDS ORDERED: cefTRIAXone SODIUM 1 GM VIAL ONE (10:52)
[2018-08-06] MEDS ORDERED: DEXTROSE 5%-WATER - 50 ML IVPB ONE (10:52)
--- NOTE | 2018-08-06 10:54 | PN ---
GI Progress Note Subjective: POD 1 s/p Lap Nora Severe acute cholecystitis, hydrops gallbladder w/ extensive omental adhesions noted in op report Found sitting up. Patient states feeling well. Some pain at trochar sites. Passed flatus. Wants to eat - Objective Vital Signs: Vital Signs Temperature 98.6 F 08/06/18 09:15 Pulse Rate 87 08/06/18 09:15 Respiratory Rate 18 08/06/18 09:15 Blood Pressure 149/69 08/06/18 09:15 O2 Sat by Pulse Oximetry (%) 100 08/05/18 16:20 Constitutional: Calm Eyes: No: Sclera Icterus Cardiovascular: Yes: Regular Rate and Rhythm Respiratory: Yes: CTA Bilaterally Gastrointestinal Inspection: Yes: Scars (glued trochar scars). No: Distention ...Auscultate: Yes: Normoactive Bowel Sounds ...Palpate: Yes: Tenderness (at trochar sites) ...Percussion: No: Tympanitic Edema: No (No LE edema) Neurological: Yes: Alert Labs: CBC, BMP 08/06/18 06:00 08/06/18 06:00 INR, PTT INR 1.10 (0.83-1.09) H 08/04/18 16:17 Hepatic Panel Total Bilirubin 1.5 mg/dL (0.2-1) H 08/06/18 06:00 AST 27 U/L (15-37) 08/06/18 06:00 ALT 32 U/L (13-61) 08/06/18 06:00 Alkaline Phosphatase 67 U/L (45-117) 08/06/18 06:00 Albumin 3.8 g/dl (3.4-5.0) 08/06/18 06:00 Problem List - Problems (1) Acute cholecystitis Assessment/Plan: POD 1: Lap Nora secondary to severe acute cholecystitis Post op care per surgery On IV Abx per primary team Will sign off. Please recall as needed Code(s): K81.0 - ACUTE CHOLECYSTITIS
[2018-08-06] MEDS: CEFTRIAXONE 1 GM in DEXTROSE 5%-WATER - 50 ML IVPB SCH (11:00)
--- NOTE | 2018-08-06 13:37 | PN ---
Teaching Attending Note Name of Resident: Kathrin Cross ATTENDING PHYSICIAN STATEMENT I saw and evaluated the patient. I reviewed the resident's note and discussed the case with the resident. I agree with the resident's findings and plan as documented. SUBJECTIVE: Mild abdominal discomfort post-op. No fever/chills. No further nausea/vomiting. No chest pain/palps/SOB/diarrhea. No melena/hematochezia. OBJECTIVE: Afebrile, Hemodynamically Stable Last Vital Signs Temp Pulse Resp BP Pulse Ox 98.6 F 87 18 149/69 100 08/06/18 09:15 08/06/18 09:15 08/06/18 09:15 08/06/18 09:15 08/05/18 16:20 HEENT- Atraumatic, Normocephalic Heart - S1, S2, RRR Lungs - clear to auscultation Abdomen - Trochar sites clean. Mildly tender. Soft, no guarding. Bowel Sounds normal. Extremities - no edema, no calf tenderness. Laboratory Results - last 24 hr 08/06/18 08/06/18 06:00 06:00 WBC 13.8 H RBC 4.78 Hgb 14.2 Hct 40.7 MCV 85.2 MCH 29.7 MCHC 34.9 RDW 13.6 Plt Count 194 MPV 11.5 H Absolute Neuts (auto) 10.1 H Neutrophils % 73.1 Lymphocytes % 19.6 Monocytes % 6.6 Eosinophils % 0.5 Basophils % 0.2 Nucleated RBC % 0 Sodium 137 Potassium 3.5 Chloride 104 Carbon Dioxide 25 Anion Gap 8 BUN 7 Creatinine 0.8 Creat Clearance w eGFR 119.80 Random Glucose 108 H Calcium 9.1 Phosphorus 3.2 Magnesium 1.9 Total Bilirubin 1.5 H AST 27 ALT 32 Alkaline Phosphatase 67 Total Protein 7.2 Albumin 3.8 Current Medications Generic Name Dose Route Start Last Admin Trade Name Freq PRN Reason Stop Dose Admin Acetaminophen 325 mg 08/05/18 14:29 Tylenol - PO Q6H PRN PAIN LEVEL 1-5 Acetaminophen 500 mg 08/05/18 14:37 Tylenol - PO Q6H PRN PAIN LEVEL 1-5 Fentanyl 50 mcg 08/05/18 14:37 08/05/18 15:50 Sublimaze Injection - IVPUSH 50 mcg [id number] PRN Administration PAIN-PACU ORDER X 4 DOSES ONLY Ceftriaxone Sodium 1 gm/ 50 mls @ 100 mls/hr 08/06/18 10:00 08/06/18 11:00 Dextrose IVPB 100 mls/hr DAILY DEUCE Administration Metronidazole 500 mg in 100 mls @ 100 mls/hr 08/05/18 18:00 08/06/18 11:01 Flagyl 500mg Premixed Ivpb - IVPB 100 mls/hr Q8H-IV DEUCE Administration Morphine Sulfate 2 mg 08/05/18 14:37 Morphine Sulfate IVPUSH Q6H PRN PAIN LEVEL 7 - 10 Ondansetron HCl 4 mg 08/05/18 14:37 Zofran Injection IVPUSH Q6H PRN NAUSEA AND/OR VOMITING Oxycodone HCl 5 mg 08/05/18 14:29 Roxicodone - PO Q6H PRN PAIN LEVEL 1-5 ASSESSMENT AND PLAN: 23 year old male with no significant PMH presents with back pain and dark vomitus with "red clots", found to have RUQ tenderness and acute calculous cholecystitis on US imaging. US Abdomen - acute calculous cholecystitis, immobile calculi, 1.4cm diam, mild overdistended GB without pericholecystic fluid. 1. Acute Calculous Cholecystitis POD 1 s/p lap Nora - extensive omental adhesions noted in op note. Continue IV Ceftriaxone/Flagyl for another day as per Surgery Leukocytosis improving. Afebrile, Hemodynamically Stable. 2. Possible GI bleed - Hematemesis prior to ED presentation reported by patient. No epigastric pain/melena/hematochezia. No further vomiting GI consulted - no intervention recommended currently. 3. Hypokalemia - repleted DVT Px - SCDs. Heparin held due to reported bloody vomitus prior to admission.
--- NOTE | 2018-08-06 15:50 | PN ---
Progress Note, Physician - Current Medication List Current Medications: Active Medications Acetaminophen (Tylenol -) 325 mg PO Q6H PRN PRN Reason: PAIN LEVEL 1-5 Acetaminophen (Tylenol -) 500 mg PO Q6H PRN PRN Reason: PAIN LEVEL 1-5 Fentanyl (Sublimaze Injection -) 50 mcg IVPUSH [id number] PRN PRN Reason: PAIN-PACU ORDER X 4 DOSES ONLY Last Admin: 08/05/18 15:50 Dose: 50 mcg Ceftriaxone Sodium 1 gm/ (Dextrose) 50 mls @ 100 mls/hr IVPB DAILY DEUCE Last Admin: 08/06/18 11:00 Dose: 100 mls/hr Metronidazole (Flagyl 500mg Premixed Ivpb -) 500 mg in 100 mls @ 100 mls/hr IVPB Q8H-IV DEUCE Last Admin: 08/06/18 11:01 Dose: 100 mls/hr Morphine Sulfate (Morphine Sulfate) 2 mg IVPUSH Q6H PRN PRN Reason: PAIN LEVEL 7 - 10 Ondansetron HCl (Zofran Injection) 4 mg IVPUSH Q6H PRN PRN Reason: NAUSEA AND/OR VOMITING Oxycodone HCl (Roxicodone -) 5 mg PO Q6H PRN PRN Reason: PAIN LEVEL 1-5 - Objective Vital Signs: Vital Signs Temperature 98.1 F 08/06/18 13:57 Pulse Rate 88 08/06/18 13:57 Respiratory Rate 18 08/06/18 13:57 Blood Pressure 142/64 08/06/18 13:57 O2 Sat by Pulse Oximetry (%) 98 08/06/18 09:00 Labs: CBC, BMP 08/06/18 06:00 08/06/18 06:00 INR, PTT INR 1.10 (0.83-1.09) H 08/04/18 16:17 Problem List - Problems (1) Calculus of gallbladder Code(s): K80.20 - CALCULUS OF GALLBLADDER W/O CHOLECYSTITIS W/O OBSTRUCTION Qualifiers: Cholecystitis presence: with cholecystitis (2) Acute cholecystitis Code(s): K81.0 - ACUTE CHOLECYSTITIS Assessment/Plan Surgery: Patient is afebrile. WBC is improving, Abdomen is soft , not tender. Patient is informed of operative findings, and patient now states that he had abdominal pain for a few weeks. Possible discharge tomorrow with oral antibiotics.
[2018-08-07 06:42] VITALS: TEMP 98.6
[2018-08-07 07:33] LABS: BASO % 0.5 % (0-2.0); EOS % 0.9 % (0-4.5); HEMOGLOBIN 14.3 GM/dL (11.7-16.9); LYMPH % 20.1 % (8-40); MCH 30.4 pg (25.7-33.7); MCHC 35.6 g/dl (32.0-35.9); MEAN CELL VOLUME 85.3 fl (80-96); MEAN PLT VOLUME 11.2 fl (7.5-11.1); MONO % 8.2 % (3.8-10.2); NEUT % 70.3 % (42.8-82.8); PLATELET COUNT 185 K/MM3 (134-434); RDW 13.7 % (11.9-15.9); WHITE BLOOD COUNT 11.7 K/mm3 (4.0-10.0)
[2018-08-07 08:06] LABS: ANION GAP 8 MMOL/L (8-16); BLOOD UREA NITROGEN 11 mg/dL (7-18); CALCIUM 9.2 mg/dL (8.5-10.1); CHLORIDE 105 mmol/L (98-107); CO2 26 mmol/L (21-32); CREATININE 0.8 mg/dL (0.55-1.3); GLUCOSE,RANDOM 92 mg/dL (74-106); MAGNESIUM 2.1 mg/dL (1.8-2.4); PHOSPHOROUS 3.8 mg/dL (2.5-4.9); SODIUM 138 mmol/L (136-145)
[2018-08-07] MEDS ORDERED: DEXTROSE 5%-WATER - 50 ML IVPB ONE (08:41)
[2018-08-07] MEDS ORDERED: cefTRIAXone SODIUM 1 GM VIAL ONE (08:41)
[2018-08-07] MEDS: CEFTRIAXONE 1 GM in DEXTROSE 5%-WATER - 50 ML IVPB SCH (11:43)
--- NOTE | 2018-08-07 12:06 | DS ---
Physical Exam: SUBJECTIVE: Patient seen and examined OBJECTIVE: Vital Signs Period Temp Pulse Resp BP Sys/Arguello Pulse Ox Last 24 Hr 98.1 F-98.6 F 78-98 18-20 125-142/64-85 98 PHYSICAL EXAM HEENT- Atraumatic, Normocephalic Heart - S1, S2, RRR Lungs - clear to auscultation Abdomen - Trochar sites clean. Mildly tender. Soft, no guarding. Bowel Sounds normal. Extremities - no edema, no calf tenderness. LABS Laboratory Results - last 24 hr 08/07/18 08/07/18 06:00 06:00 WBC 11.7 H RBC 4.70 Hgb 14.3 Hct 40.0 MCV 85.3 MCH 30.4 MCHC 35.6 RDW 13.7 Plt Count 185 MPV 11.2 H Absolute Neuts (auto) 8.2 H Neutrophils % 70.3 Lymphocytes % 20.1 Monocytes % 8.2 Eosinophils % 0.9 Basophils % 0.5 Nucleated RBC % 0 Sodium 138 Potassium 4.0 Chloride 105 Carbon Dioxide 26 Anion Gap 8 BUN 11 Creatinine 0.8 Creat Clearance w eGFR 119.80 Random Glucose 92 Calcium 9.2 Phosphorus 3.8 Magnesium 2.1 Date of Admission:08/04/18 Date of Discharge: 08/07/18 Minutes to complete discharge: 40 Discharge Summary Reason For Visit: ACUTE CHOLECYSTITIS Current Active Problems Acute cholecystitis (Acute) Calculus of gallbladder (Acute) Hospital Course: 23 year old male with no significant PMH presents with back pain and dark vomitus with "red clots", found to have RUQ tenderness and acute calculous cholecystitis on US imaging. He underwent laparoscopuc cholecystectomy with extensive omental adhesions during surgery. He is currently tolerating diet with no abdominal discomfort. He is afebrile and medically stable for discharge home on oral Abx therapy. US Abdomen - acute calculous cholecystitis, immobile calculi, 1.4cm diam, mild overdistended GB without pericholecystic fluid. 1. Acute Calculous Cholecystitis POD 2 s/p lap Nora - extensive omental adhesions noted in op note. Received 2 days of IV Ceftriaxone/Flagyl - medically stable for discharge and transition to oral antibiotics Cipro and Flagyl for another 5 days. Leukocytosis improved He has remained afebrile and hemodynamically stable, optimized for discharge with GI and Surgery follow up as out-patient. 2. Possible GI bleed - Hematemesis prior to ED presentation reported by patient. No epigastric pain/melena/hematochezia. No further vomiting GI consulted - no intervention recommended currently. Will give out-patient follow up. Condition: Good - Instructions Diet, Activity, Other Instructions: You came in for abdominal pain and were found to have inflammation and infection in your gallbladder due to gallstones. we gave you pain meds, antibiotics, and you went for surgery to remove your gallbladder, You also noted having blood in your vomit. You were seen by the [employer] Dr. Rodriguez. It is unlikely you have any active bleed in your intestines or stomach. Vomiting for prolonged periods of time can irritate the stomach and cause you to bleed a little. If you continue to bleed or notice blood in your stools please follow up with [employer] Dr. Rodriguez, call 911 or go to the ER Shower daily Please follow up with your primary care physician within 1 week. Please follow up with [employer] Dr. Rodriguez within 1 week if you continue to bleed/vomit blood. Please follow up with Surgeon Dr. Carrillo on Wednesday at 4.30 pm. If you experience any fevers, chills, shortness of breath, chest pain, nausea, vomit, diarrhea, more abdominal pain, blood in stools, blood in vomit please call 911 or go to the ER. Referrals: Keaton Rodriguez DO [Staff Physician] - 1 Week Jorge Carrillo MD [Staff Physician] - 08/15/18 4:30 pm Disposition: HOME - Home Medications Comprehensive Discharge Medication List: Ambulatory Orders Ciprofloxacin [Cipro -] 500 mg PO Q12H 5 Days #10 tablet 08/07/18 metroNIDAZOLE [Flagyl -] 500 mg PO TID 5 Days #15 tablet 08/07/18 This patient is new to me today: No Emergency Visit: Yes ED Registration Date: 08/04/18 Care time: The patient presented to the Emergency Department on the above date and was hospitalized for further evaluation of their emergent condition. Critical Care patient: No - Discharge Referral Referred to [facility] No Physician Referral: Blaise Garcia MD ([facility])
[2018-08-07 12:14] VITALS: BP 128/72; PULSE 95
--- NOTE | 2018-08-09 09:18 | SURG ---
Surgery Automatic Packer Operator Note Automatic Packer Operator: Gary Fonseca MD Date of Service: 08/05/18 Diagnosis: acute cholecystitis/cholelithiasis Procedure: laparoscopic cholecystectomy I was present for the entirety of the operative procedure. For further detail, please refer to operative report.
--- NOTE | 2018-08-09 18:30 | PATH ---
Surgical Pathology Report Patient Name: YARI BALLARD Med. Rec. #: [id number] /Age/Gender: 1995 (Age: 23) / M Account: [id number] Location: [facility] MED/SURG Taken: 08/05/2018 Received: 08/08/2018 Reported: 08/09/2018 Physicians: Fanny Carrillo M.D. PHYSICIAN EMERGENCY DEPT Specimen(s) Received GALLBLADDER Clinical History Acute cholecystitis Final Diagnosis GALLBLADDER, LAPAROSCOPIC CHOLECYSTECTOMY: ACUTE AND CHRONIC CHOLECYSTITIS WITH CHOLELITHIASIS. Electronically Signed Mary Millan M.D. Gross Description Received in formalin, labeled "gallbladder," is a 9.0 x 3.3 x 2.2 cm. gallbladder with a 0.2 cm. in length portion of cystic duct attached. The outer surface is orr-horne with a focal defect and varies from smooth to shaggy. The lumen contains a 2.0 cm in greatest dimension brown, ovoid cholelith. There is no bile present within the lumen. The mucosa is orr-brown and focally eroded. The wall of the gallbladder ranges from 0.1-0.4 cm. in thickness. Mine Captain sections are submitted in one cassette. 08/08/2018 [facility]08/08/2018
== END 2018-08-07 13:43 | disposition home or self-care (01) | DRG 263 ==
LOC: JER 09:45 → JERBED 13:47 → J8W 17:31
PROC: 0DNU4ZZ Release Omentum, Percutaneous Endoscopic Approach (ICD-10-PCS; 2018-08-05)
PROC: 0FT44ZZ Resection of Gallbladder, Percutaneous Endoscopic Approach (ICD-10-PCS; principal; 2018-08-05 11:30)
DX: K80.01 Calculus of gallbladder with acute cholecystitis with obstruction (principal); K66.0 Peritoneal adhesions (postprocedural) (postinfection); E87.6 Hypokalemia; K82.1 Hydrops of gallbladder; F17.210 Nicotine dependence, cigarettes, uncomplicated; D72.829 Elevated white blood cell count, unspecified; K92.0 Hematemesis
CPT/HCPCS: 36415; 71046-TC-FY; 76705-TC; 80048; 80053; 81003; 83690; 83735; 84100; 85025; 85610; 85730; 86850; 86900; 86901; 87070; 87075; 87205; 88304-TC; 93005; 93010; 94760; 99283-25; J0131